=== PATIENT | female | born 1945 | race Caucasian/White ===

== ENCOUNTER 2024-12-31 10:32 | Inpatient (IN) | payer MEDICARE, BC ==
[~2024-12-31 10:32] MED LIST: Iopamidol 370 76% 100 ML VIAL ONE
[2024-12-31 11:05] LABS: #Basophils Less than 0.03 10x3/uL (0.0-0.2); #Eosinophils 0.03 10x3/uL (0.0-0.7); #Monocytes 0.61 10x3/uL (0.11-0.59); #Neutrophils 6.18 10x3/uL (1.40-6.50); %Basophils 0.2 % (0.0-1.0); %Eosinophils 0.3 % (0.0-10.0); %Lymphocytes 24.3 % (21.0-51.0); %Monocytes 6.7 % (0.0-10.0); %Neutrophils 68.3 % (42.0-75.0); Hematocrit 31.9 % (36.0-47.0); Hemoglobin 10.2 g/dL (12.0-16.0); Mean Corpuscular Hemoglobin 29.1 pg (27.0-31.0); Mean Corpuscular Volume 91.1 fL (78.0-98.0); Platelet Count 224 10x3/uL (130-400); Red Blood Cell (RBC) Count 3.50 mill/uL (4.20-5.40); White Blood Cell (WBC) Count 9.06 10x3/uL (4.8-10.8)
[2024-12-31 11:38] LABS: ALT (SGPT) 12 U/L (Less than 34); AST (SGOT) 20 U/L (11-34); Albumin 3.3 g/dL (3.1-4.5); Alkaline Phosphatase 85 U/L (40-110); Anion Gap 14 mmol/L (10-20); BUN (Urea Nitrogen) 26 mg/dL (9.8-20.1); Bilirubin, Total 0.4 mg/dL (0.3-1.2); Calc. Creatinine Clearance 0 mL/min (70-130); Calcium 8.8 mg/dL (7.8-10.44); Carbon Dioxide 22 mmol/L (23-31); Chloride 110 mmol/L (98-107); Globulin 3.0 g/dL (2.4-3.5); Glucose 106 mg/dL (83-110); Potassium 3.9 mmol/L (3.5-5.1); Sodium 142 mmol/L (136-145)
[2024-12-31] MEDS ORDERED: Lidocaine 1% (PF) 30 ML VIAL ONE (12:11)
[2024-12-31] MEDS ORDERED: Nitroglycerin 50 MG/250 ML BOT 250 ML ONE (12:30)
[2024-12-31] MEDS ORDERED: Adenosine 6 mg (2 mL) VIAL ONE (12:31)
[2024-12-31] MEDS ORDERED: PHENYLEPHRINE-NS 100 MCG/ML 10 ML SYRINGE ONE (12:31)
[2024-12-31] MEDS ORDERED: Heparin 10,000 UNITS/ 10 ML VIAL ONE ×2 (12:31→12:37)
[2024-12-31] MEDS ORDERED: Nitroglycerin 0.4 MG TAB (25 Tab Bottle) SL PRN (13:29)
[2024-12-31 18:40] VITALS: BMI 30.1
[2024-12-31] MEDS: Polyvinyl Alcohol 1.4%/Povidone 0.6% Opth Drops EA EYE SCH ×2 (21:30→21:32)
[2024-12-31] MEDS: Rosuvastatin 10 MG TAB PO SCH (21:31)
[2024-12-31] MEDS: Artificial Tear Ophth Sol 15 ML BOT EA EYE SCH (21:37)
[2025-01-01 04:48] LABS: #Basophils 0.03 10x3/uL (0.0-0.2); #Eosinophils 0.03 10x3/uL (0.0-0.7); #Monocytes 0.93 10x3/uL (0.11-0.59); #Neutrophils 4.70 10x3/uL (1.40-6.50); %Basophils 0.4 % (0.0-1.0); %Eosinophils 0.4 % (0.0-10.0); %Lymphocytes 32.7 % (21.0-51.0); %Monocytes 11.0 % (0.0-10.0); %Neutrophils 55.3 % (42.0-75.0); Hematocrit 30.0 % (36.0-47.0); Hemoglobin 9.6 g/dL (12.0-16.0); Mean Corpuscular Hemoglobin 29.3 pg (27.0-31.0); Mean Corpuscular Volume 91.5 fL (78.0-98.0); Platelet Count 231 10x3/uL (130-400); Red Blood Cell (RBC) Count 3.28 mill/uL (4.20-5.40); White Blood Cell (WBC) Count 8.48 10x3/uL (4.8-10.8)
[2025-01-01 05:00] LABS: ALT (SGPT) 15 U/L (Less than 34); AST (SGOT) 83 U/L (11-34); Albumin 3.2 g/dL (3.1-4.5); Alkaline Phosphatase 78 U/L (40-110); Anion Gap 11 mmol/L (10-20); BUN (Urea Nitrogen) 24 mg/dL (9.8-20.1); Bilirubin, Total 0.4 mg/dL (0.3-1.2); Calc. Creatinine Clearance 47 mL/min (70-130); Calcium 8.4 mg/dL (7.8-10.44); Carbon Dioxide 23 mmol/L (23-31); Chloride 112 mmol/L (98-107); Globulin 2.7 g/dL (2.4-3.5); Glucose 132 mg/dL (83-110); Potassium 3.9 mmol/L (3.5-5.1); Sodium 142 mmol/L (136-145)
[2025-01-01] MEDS: Aspirin Chewable 81 MG TAB PO SCH (08:19)
[2025-01-01] MEDS: Mirabegron ER 25 MG ER.TAB PO SCH (08:19)
[2025-01-01] MEDS: Enoxaparin 30 MG (0.3 mL) SYRINGE SC SCH (08:19)
[2025-01-01] MEDS: Pantoprazole 40 MG DR.TAB PO SCH (08:20)
[2025-01-01] MEDS: Sacubitril 49 MG/Valsartan 51 MG TABLET PO SCH (08:20)
[2025-01-01] MEDS: FLU (Fluad Triv) 25-26 (65UP)PF 45 MCG/0.5 ML Syringe IM ONE (08:26)
[2025-01-01 10:50] VITALS: TEMP 98.8
[2025-01-01 12:24] VITALS: BP 144/80
== END 2025-01-01 12:50 | disposition home or self-care (01) | DRG 322 ==
LOC: ERS 10:32 → CCL 12:10 → 2NO 16:03
PROVIDERS: ADMIT Internal Medicine Cardiovascular Disease; ATTEND Internal Medicine Cardiovascular Disease
PROC: 027034Z Dilation of Coronary Artery, One Artery with Drug-eluting Intraluminal Device, Percutaneous Approach (ICD-10-PCS; principal; 2024-12-31)
PROC: 3E0234Z Introduction of Serum, Toxoid and Vaccine into Muscle, Percutaneous Approach (ICD-10-PCS; 2024-12-31)
PROC: 3E033XZ Introduction of Vasopressor into Peripheral Vein, Percutaneous Approach (ICD-10-PCS; 2024-12-31)
DX: I25.10 Atherosclerotic heart disease of native coronary artery without angina pectoris (principal); E78.5 Hyperlipidemia, unspecified; I10 Essential (primary) hypertension; M19.90 Unspecified osteoarthritis, unspecified site; Z96.642 Presence of left artificial hip joint; E07.9 Disorder of thyroid, unspecified; Z96.651 Presence of right artificial knee joint; Z87.81 Personal history of (healed) traumatic fracture; Z90.49 Acquired absence of other specified parts of digestive tract; Z79.01 Long term (current) use of anticoagulants; Z98.890 Other specified postprocedural states; Z90.711 Acquired absence of uterus with remaining cervical stump; Z79.82 Long term (current) use of aspirin; Z79.899 Other long term (current) drug therapy; Z79.890 Hormone replacement therapy; Z23 Encounter for immunization
CPT/HCPCS: 36415; 71045; 80053; 84484; 85025; 90653; 92928; 93005; 93010; 93454; 93798; 94760; 96361; 96374; C1760; C1769; C1874; C1887; C1894; C1984; C9600; J0153; J0461; J1644; J1650; J3010; J7030; Q9967